=== PATIENT | female | born 1990 | race Caucasian/White ===

== ENCOUNTER 2020-10-07 18:29 | Emergency (ER) | payer OTHER ==
[2020-10-07 18:38] VITALS: TEMP 98.4; BMI 41.1
[2020-10-07] MEDS ORDERED: SODIUM CHLORIDE 1,000 ML IV STA (19:48)
[2020-10-07] MEDS ORDERED: ONDANSETRON 4 MG/2 ML VIAL IVPUSH ONE (19:48)
[2020-10-07] MEDS ORDERED: FAMOTIDINE 20 MG/50 ML IVPB 20 MG/50 ML MG IVPB ONE ×2 (19:48→19:59)
[2020-10-07] MEDS ORDERED: MAG HYDROX/AL HYDROX/SIMETH -MYLANTA- ORAL SUSPENSION PO ONE (19:51)
[2020-10-07] MEDS ORDERED: MAG HYDROX/AL HYDROX/SIMETH 30 ML UNIT-DOSE CUP ONE (19:59)
[2020-10-07] MEDS ORDERED: ONDANSETRON 4 MG/2 ML VIAL ONE (19:59)
[2020-10-07 20:37] LABS: BASO % 1.1 % (0-2.0); EOS % 2.5 % (0-4.5); HEMATOCRIT 40.5 % (32.4-45.2); HEMOGLOBIN 13.3 GM/dL (10.7-15.3); LYMPH % 29.4 % (8-40); MCHC 32.8 g/dl (32.0-36.0); MEAN CELL VOLUME 79.3 fl (80-96); MEAN PLT VOLUME 8.9 fl (7.5-11.1); MONO % 9.5 % (3.8-10.2); NEUT % 57.5 % (42.8-82.8); PLATELET COUNT 398 K/MM3 (134-434)
[2020-10-07 21:10] LABS: ALBUMIN 4.3 g/dl (3.4-5.0); BLOOD UREA NITROGEN 10.7 mg/dL (7-18); CALCIUM 9.7 mg/dL (8.5-10.1)
[2020-10-07 21:13] LABS: CREATININE 0.9 mg/dL (0.55-1.3)
[2020-10-07 21:14] LABS: BILIRUBIN,TOTAL 0.4 mg/dL (0.2-1)
[2020-10-07 21:15] LABS: TOT PROT 8.6 g/dl (6.4-8.2)
[2020-10-07 21:32] LABS: EPI CELLS 30 /uL (0-25.1); HCG,QUALITATIVE URINE Negative; HYALINE CASTS 3 /uL (0-3.1); URINE APPEARANCE CLEAR; URINE BACTERIA 5 /uL (0-1359); URINE BILIRUBIN NEGATIVE (NEGATIVE); URINE COLOR DK YELLOW; URINE GLUCOSE (UA) NEGATIVE (NEGATIVE); URINE KETONE 1+ (NEGATIVE); URINE LEUK ESTERASE TRACE (NEGATIVE); URINE NITRITE NEGATIVE (NEGATIVE); URINE PROTEIN TRACE (NEGATIVE); URINE RBC 10 /uL (0-23.9); URINE UROBILINOGEN 0.2 mg/dL (0.2-1.0); URINE WBC 8 /uL (0-25.8)
[2020-10-07 22:14] VITALS: BP 140/88; PULSE 70
== END 2020-10-07 22:14 | disposition home or self-care (01) ==
LOC: JER 18:29
PROC: 3E033GC Introduction of Other Therapeutic Substance into Peripheral Vein, Percutaneous Approach (ICD-10-PCS; principal; 2020-10-07)
PROC: 3E033GC Introduction of Other Therapeutic Substance into Peripheral Vein, Percutaneous Approach (ICD-10-PCS; 2020-10-07)
PROC: 3E0337Z Introduction of Electrolytic and Water Balance Substance into Peripheral Vein, Percutaneous Approach (ICD-10-PCS; 2020-10-07)
DX: K29.50 Unspecified chronic gastritis without bleeding (principal)
CPT/HCPCS: 36415; 80053; 81003; 83690; 84703; 85025; 87086; 99284-25

== ENCOUNTER 2022-12-20 06:00 | Inpatient (IN) | payer OTHER ==
[2022-12-20] MEDS ORDERED: CITRIC ACID/SODIUM CITRATE 30 ML UNIT-DOSE CUP PO ONE (06:30)
[2022-12-20] MEDS ORDERED: ELECTROLYTE-148 SOLN 500 ML IV ONE ×2 (06:30→08:11)
[2022-12-20 06:57] VITALS: BMI 44.4
[2022-12-20] MEDS ORDERED: ELECTROLYTE-148 SOLN 1,000 ML IV SCH (07:00)
[2022-12-20] MEDS ORDERED: morphine SULFATE/PF 1 MG/2 ML (2cc Syringe - QUVA) ONE (08:24)
[2022-12-20] MEDS ORDERED: FENTANYL CITRATE/PF 50 MCG/ML VIAL ONE (08:24)
[2022-12-20] MEDS ORDERED: ceFAZolin SODIUM 1 GM VIAL ONE (08:58)
[2022-12-20] MEDS ORDERED: ONDANSETRON 4 MG/2 ML VIAL ONE (08:58)
[2022-12-20] MEDS ORDERED: OXYTOCIN 10 UNITS/ML VIAL ONE (08:58)
[2022-12-20] MEDS ORDERED: PHENYLEPHRINE HCL 10 MG/1 ML SINGLE DOSE VIAL ONE (08:58)
[2022-12-20] MEDS ORDERED: KETOROLAC TROMETHAMINE 30 MG/1 ML VIAL ONE (09:30)
[2022-12-20] MEDS ORDERED: ONDANSETRON 4 MG/2 ML VIAL IVPB PRN (09:58)
[2022-12-20] MEDS ORDERED: SENNOSIDES/DOCUSATE COMBO (SENNA PLUS) TABLET (UD) PO PRN (09:58)
[2022-12-20] MEDS ORDERED: OXYTOCIN 20 UNITS in 0.9% NS 20 UNIT/1,000 ML INFUS.BAG IV SCH (10:00)
[2022-12-20] MEDS ORDERED: oxyCODONE HCL 5 MG TABLET PO PRN (10:00)
[2022-12-20] MEDS: ACETAMINOPHEN 1000 MG/100 ML BAG IVPB SCH ×3 (16:26→22:27)
[2022-12-20] MEDS: IBUPROFEN 800 MG/8 ML IJ IVPB SCH ×2 (18:35→19:13)
[2022-12-21] MEDS: IBUPROFEN 800 MG/8 ML IJ IVPB SCH (03:04)
[2022-12-21] MEDS: ACETAMINOPHEN 1000 MG/100 ML BAG IVPB SCH (06:10)
[2022-12-21 08:08] LABS: BASO % 0.5 % (0-2.0); EOS % 1.9 % (0-4.5); HEMATOCRIT 30.5 % (32.4-45.2); HEMOGLOBIN 9.8 GM/dL (10.7-15.3); LYMPH % 17.5 % (8-40); MCH 25.4 pg (25.7-33.7); MCHC 32.1 g/dl (32.0-36.0); MEAN CELL VOLUME 79.2 fl (80-96); MEAN PLT VOLUME 8.5 fl (7.5-11.1); MONO % 8.6 % (3.8-10.2); NEUT % 71.5 % (42.8-82.8); PLATELET COUNT 349 10^3/uL (134-434); RBC 3.84 M/mm3 (3.60-5.2); RDW 14.8 % (11.6-15.6)
[2022-12-21] MEDS: IBUPROFEN 600 MG TABLET (FP) PO PRN ×2 (09:38→20:33)
[2022-12-21] MEDS: SIMETHICONE 80 MG TAB.CHEW (FP) PO PRN ×2 (09:38→20:33)
[2022-12-21] MEDS: ENOXAPARIN NA (PORCINE) 40 MG/0.4 ML DISP.SYRIN SQ SCH (09:39)
[2022-12-21] MEDS ORDERED: BISACODYL 10 MG SUPP.RECT RC PRN (09:58)
[2022-12-21] MEDS ORDERED: ACETAMINOPHEN 325 MG TABLET (FP) PO PRN (10:00)
[2022-12-21] MEDS: POLYETHYLENE GLYCOL (HEALTHYLAX) 3350 17 GM PACKET PO SCH (11:03)
[2022-12-21] MEDS: SENNOSIDES/DOCUSATE COMBO (SENNA PLUS) TABLET (UD) PO SCH ×2 (11:04→21:53)
[2022-12-22] MEDS: SIMETHICONE 80 MG TAB.CHEW (FP) PO PRN (08:19)
[2022-12-22] MEDS: IBUPROFEN 600 MG TABLET (FP) PO PRN (08:19)
[2022-12-22] MEDS: ENOXAPARIN NA (PORCINE) 40 MG/0.4 ML DISP.SYRIN SQ SCH (09:40)
[2022-12-22] MEDS: POLYETHYLENE GLYCOL (HEALTHYLAX) 3350 17 GM PACKET PO SCH (09:40)
[2022-12-22 12:16] LABS: EOS % 3.2 % (0-4.5); HEMATOCRIT 29.8 % (32.4-45.2); HEMOGLOBIN 9.6 GM/dL (10.7-15.3); LYMPH % 16.7 % (8-40); MCH 25.5 pg (25.7-33.7); MCHC 32.1 g/dl (32.0-36.0); MEAN CELL VOLUME 79.5 fl (80-96); MEAN PLT VOLUME 8.7 fl (7.5-11.1); MONO % 7.6 % (3.8-10.2); NEUT % 71.5 % (42.8-82.8); PLATELET COUNT 381 10^3/uL (134-434); RBC 3.75 M/mm3 (3.60-5.2); RDW 14.8 % (11.6-15.6); WHITE BLOOD COUNT 17.3 K/mm3 (4.0-10.0)
[2022-12-23] MEDS: SIMETHICONE 80 MG TAB.CHEW (FP) PO PRN (01:01)
[2022-12-23] MEDS: SENNOSIDES/DOCUSATE COMBO (SENNA PLUS) TABLET (UD) PO SCH (01:03)
[2022-12-23 02:15] VITALS: TEMP 98.1
[2022-12-23 08:29] LABS: BASO % 0.5 % (0-2.0); HEMATOCRIT 28.2 % (32.4-45.2); HEMOGLOBIN 8.9 GM/dL (10.7-15.3); LYMPH % 21.4 % (8-40); MCH 25.6 pg (25.7-33.7); MCHC 31.7 g/dl (32.0-36.0); MEAN CELL VOLUME 80.6 fl (80-96); MEAN PLT VOLUME 8.7 fl (7.5-11.1); MONO % 8.9 % (3.8-10.2); NEUT % 66.2 % (42.8-82.8); PLATELET COUNT 376 10^3/uL (134-434); RDW 15.1 % (11.6-15.6); WHITE BLOOD COUNT 15.3 K/mm3 (4.0-10.0)
[2022-12-23] MEDS: ENOXAPARIN NA (PORCINE) 40 MG/0.4 ML DISP.SYRIN SQ SCH (09:51)
[2022-12-23] MEDS: POLYETHYLENE GLYCOL (HEALTHYLAX) 3350 17 GM PACKET PO SCH (09:51)
[2022-12-23] MEDS ORDERED: ACETAMINOPHEN 325 MG TABLET (FP) PO PRN (10:00)
[2022-12-23 10:16] VITALS: BP 112/68; PULSE 103; RESP 16
== END 2022-12-23 11:30 | disposition home or self-care (01) | DRG 540 ==
LOC: JLDR 06:00 → J3W 12:20
PROVIDERS: ADMIT Specialist; ATTEND Specialist
PROC: 10D00Z1 Extraction of Products of Conception, Low, Open Approach (ICD-10-PCS; principal; 2022-12-20)
DX: O36.63X0 Maternal care for excessive fetal growth, third trimester, not applicable or unspecified (principal); O99.214 Obesity complicating childbirth; O16.4 Unspecified maternal hypertension, complicating childbirth; Z3A.38 38 weeks gestation of pregnancy; Z37.0 Single live birth
CPT/HCPCS: 36415; 80053; 85025; 85027; 85610; 85730; 86780; 86850; 86870; 86900; 86901; 86902; 87389; 88307-TC; 94010